=== PATIENT | male | born 1950 | race Hispanic/Latino ===

== ENCOUNTER 2017-11-16 23:50 | Emergency (ER) | payer SELFPAY ==
[2017-11-17 01:17] LABS: Absolute Lymphocytes (CBC) 0.4 K/uL (0.7-4.9); Absolute Monocytes 0.4 K/uL (0.1-1.3); Absolute Neutrophil 12.3 K/uL (1.8-8.0); Basophils % 0.2 % (0-1.3); Hematocrit 42.4 % (39.6-49.0); Lymphocytes % 2.8 % (15.3-44.8); MCH 32.1 pg (27.0-35.0); MCV 93.2 fL (80-100); MPV 8.7 fL (7.6-11.3); Monocytes % 3.1 % (3.3-12.3); RBC Red Blood Cell Count 4.54 M/uL (4.33-5.43)
[2017-11-17 01:29] LABS: Bicarbonate 24 mEq/L (21-31); Glucose Level 172 mg/dL (65-120); Lipase 23 U/L (22-51); Potassium 3.7 mEq/L (3.6-5.0); Sodium Level 138 mEq/L (135-145)
[2017-11-17 01:35] LABS: ALT/SGPT 21 IU/L (10-60); AST/SGOT 31 IU/L (10-42); Albumin 4.1 g/dL (3.2-5.5); Alkaline Phosphatase 78 IU/L (42-121); Amylase Level 83 U/L (28-100); BUN Blood Urea Nitrogen 22 mg/dL (6-20); Bilirubin Direct < 0.1 mg/dL (0-0.2); Bilirubin Total 0.6 mg/dL (0.3-1.2); Protein, Total 7.8 g/dL (6.0-8.3)
[2017-11-17] MEDS ORDERED: NA CHLORIDE 0.9% 1,000 ML ONE (01:44)
[2017-11-17 01:56] LABS: Urine Amorphous Sediment TRACE /HPF (NONE SEEN); Urine Bacteria <20 /HPF (NONE SEEN); Urine Culture Reflex Order NOT NEEDED; Urine Mucus LIGHT /HPF (NONE SEEN); Urine RBC <5 /HPF (NONE SEEN)
[2017-11-17 02:38] LABS: Blood Morphology Comment NOT SEEN (NOT SEEN); Platelet Estimate ADEQ; Urine White Blood Cell Casts OK
[2017-11-17 02:40] LABS: Urine Blood NEGATIVE (NEG); Urine Glucose NEGATIVE (NEG); Urine Protein 1+ (NEG); Urine Specific Gravity 1.015 (1.005-1.030); Urine pH 8.5 (5.0-7.0)
[2017-11-17] MEDS ORDERED: CIPROFLOXACIN HCL 500 MG TAB ONE (04:56)
--- NOTE | 2017-11-17 04:58 | ER ---
Nurse's Notes [facility] Name: Quincy Reece Age: 67 yrs Sex: Male : 1950 Arrival Date: 11/16/2017 Time: 23:55 Bed 7 Private MD: Diagnosis: Rectal pain.. Possible proctitis, malignancy Presentation: 11/17 00:23 Presenting complaint: Patient states: Unable to had an BM and urinate since 1900. ao Patient reports that he urinates after having a BM, but his not been able to have a BM an also urinate. Patient reports pain in the pelvic area in a 10/10 pain scale. Transition of care: patient was not received from another setting of care. Onset of symptoms is unknown. Risk Assessment: Do you want to hurt yourself or someone else? Patient reports no desire to harm self or others. Initial Sepsis Screen: Does the patient meet any 2 criteria? No. Patient's initial sepsis screen is negative. Does the patient have a suspected source of infection? No. Patient's initial sepsis screen is negative. Care prior to arrival: None. 00:23 Method Of Arrival: Ambulatory ao 00:23 Acuity: DARSHANA 3 ao Historical: - Allergies: 00:31 PENICILLINS; ao - Home Meds: 00:31 None [Active]; ao - PMHx: 00:31 prostate enlarge; Colitis; ao - PSHx: 00:31 None; ao - Immunization history:: Adult Immunizations up to date. - Social history:: Smoking status: Patient/guardian denies using tobacco, but has a distant history of tobacco abuse. - Ebola Screening: : Patient negative for fever greater than or equal to 101.5 degrees Fahrenheit, and additional compatible Ebola Virus Disease symptoms Patient denies exposure to infectious person Patient denies travel to an Ebola-affected area in the 21 days before illness onset. Screenin:11 Abuse screen: Denies threats or abuse. Denies injuries from another. Nutritional ao screening: No deficits noted. Tuberculosis screening: No symptoms or risk factors identified. Fall Risk None identified. Assessment: 00:45 General: Appears in no apparent distress. uncomfortable, Behavior is calm, cooperative, ao appropriate for age. Pain: Complains of pain in pelvis. Neuro: Level of Consciousness is awake, alert, obeys commands, Oriented to person, place, time, situation, Appropriate for age Moves all extremities. Speech is normal, Facial symmetry appears normal. Cardiovascular: Capillary refill < 3 seconds Patient's skin is warm and dry. Respiratory: Airway is patent Respiratory effort is even, unlabored, Respiratory pattern is regular, symmetrical. GI: Abdomen is non-distended, Bowel sounds present X 4 quads. Abd is soft and non tender X 4 quads. GI: Reports Unable to have a BM since 1600. : Reports Unable to urinate. EENT: No signs and/or symptoms were reported regarding the EENT system. Derm: Skin is intact, Skin is dry, Skin is pink, warm \T\ dry. Skin temperature is warm. Musculoskeletal: Circulation, motion, and sensation intact. Range of motion: intact in all extremities. 01:35 Reassessment: Patient appears in no apparent distress at this time. Patient and/or ao family updated on plan of care and expected duration. Pain level reassessed. Patient is alert, oriented x 3, equal unlabored respirations, skin warm/dry/pink. 02:40 Reassessment: Patient appears in no apparent distress at this time. Patient and/or ao family updated on plan of care and expected duration. Pain level reassessed. Patient is alert, oriented x 3, equal unlabored respirations, skin warm/dry/pink. 03:48 Reassessment: Patient appears in no apparent distress at this time. Patient and/or ao family updated on plan of care and expected duration. Pain level reassessed. Patient is alert, oriented x 3, equal unlabored respirations, skin warm/dry/pink. Patient back from CT. Waiting for CT report. 05:14 Reassessment: Discharge instructions given to patient and son in [place]. Patient agree ao with the POC and to follow up with Dr Damico. No questions at this time. Vital Signs: 00:29 BP 157 / 87; Pulse 84; Resp 18; Temp 97.4(O); Pulse Ox 99% on R/A; Weight 49.9 kg (R); ao Height 5 ft. 3 in. (160.02 cm) (R); Pain 0/10; 01:35 BP 122 / 80; Pulse 73; Resp 16; Pulse Ox 97% on R/A; ao 02:40 BP 136 / 81; Pulse 65; Resp 16; Pulse Ox 96% on R/A; Pain 0/10; ao 03:48 BP 146 / 89; Pulse 71; Resp 16; Pulse Ox 96% on R/A; ao 05:14 BP 136 / 84; Pulse 72; Resp 16; Temp 97.6(O); Pulse Ox 100% on R/A; Pain 0/10; ao 00:29 Body Mass Index 19.49 (49.90 kg, 160.02 cm) ao ED Course: 11/16 23:55 Patient arrived in ED. al2 11/17 00:19 Mp Hernandez PA is PHCP. cp 00:19 Walter Donnelly MD is Attending Physician. cp 00:23 Armaan Alvarado, CHAN is Primary Nurse. ao 00:29 Triage completed. ao 00:32 Arm band placed on right wrist. Patient placed in an exam room, Patient notified of ao wait time. 01:12 Patient has correct armband on for positive identification. Pulse ox on. NIBP on. ao 03:02 Radiology exam delayed due to Patient was given his oral contrast at 0105 but did not kw1 completely consume it until 0145. Will be scanned at approx. 0315. Patient moved to CT via wheelchair. 03:22 CT completed. Patient tolerated procedure well. Patient moved back from CT. kw1 03:25 CT Abd/Pelvis - W/Contrast: constipation In Process Unspecified. EDMS 04:56 Chi Jameson MD is Referral Physician. pkl 05:13 No provider procedures requiring assistance completed. IV discontinued, intact, ao bleeding controlled, No redness/swelling at site. Pressure dressing applied. Administered Medications: 01:55 Drug: NS 0.9% 500 ml Route: IV; Rate: bolus; Site: right antecubital; ao 03:00 Follow up: IV Status: Completed infusion; IV Intake: 500ml ao 02:31 Drug: NS 0.9% 1000 ml Route: IV; Rate: 100 ml/hr; Site: right antecubital; ao 06:30 Follow up: IV Status: Completed infusion; IV Intake: 100ml ao 04:57 Drug: Cipro 500 mg Route: PO; ao 07:08 Follow up: Response: No adverse reaction ao Point of Care Testing: Guaiac: 02:35 Stool Guaiac: Positive; Stool Hemoccult Control: Pass; ao Intake: 03:00 IV: 500ml; Total: 500ml. ao 06:30 IV: 100ml; Total: 600ml. ao Outcome: 04:57 Discharge ordered by . niall 05:13 Discharged to home ambulatory. ao 05:13 Condition: stable 05:13 Discharge instructions given to patient, Instructed on discharge instructions, follow up and referral plans. Demonstrated understanding of instructions, follow-up care, medications, Prescriptions given X 2. 05:15 Patient left the ED. ao Signatures: Dispatcher [employer] EDMS Walter Donnelly MD MD pkl Page, Corey, PA PA cp Ortiz, Alex, RN RN Siri Saucedo1 Halle Dumont2
--- NOTE | 2017-11-17 04:58 | EDPHYS ---
Physician Documentation [facility] Name: Quincy Reece Age: 67 yrs Sex: Male : 1950 Arrival Date: 11/16/2017 Time: 23:55 Bed 7 Private MD: ED Physician Walter Donnelly HPI: 11/17 00:32 This 67 yrs old Male presents to ER via Ambulatory with complaints of cp Constipation, Abdominal Pain. 00:32 The patient presents with urinary symptoms, retention. Onset: The symptoms/episode cp began/occurred today. 00:32 Associated signs and symptoms: Pertinent positives: abdominal pain, constipation, cp Pertinent negatives: diarrhea, dysuria, fever, hematuria, vomiting. Severity of symptoms: in the emergency department the symptoms are unchanged, despite home interventions. Historical: - Allergies: 00:31 PENICILLINS; ao - Home Meds: 00:31 None [Active]; ao - PMHx: 00:31 prostate enlarge; Colitis; ao - PSHx: 00:31 None; ao - Immunization history:: Adult Immunizations up to date. - Social history:: Smoking status: Patient/guardian denies using tobacco, but has a distant history of tobacco abuse. - Ebola Screening: : Patient negative for fever greater than or equal to 101.5 degrees Fahrenheit, and additional compatible Ebola Virus Disease symptoms Patient denies exposure to infectious person Patient denies travel to an Ebola-affected area in the 21 days before illness onset. ROS: 00:35 Constitutional: Negative for body aches, chills, fever, poor PO intake. cp 00:35 Eyes: Negative for injury, pain, redness, and discharge. cp 00:35 ENT: Negative for drainage from ear(s), ear pain, sore throat, difficulty swallowing, difficulty handling secretions. 00:35 Cardiovascular: Negative for chest pain, edema, palpitations. 00:35 Respiratory: Negative for cough, shortness of breath, wheezing. 00:35 Abdomen/GI: Positive for abdominal pain, constipation, Negative for nausea, vomiting, diarrhea, abdominal distension, black/tarry stool, rectal bleeding. 00:35 : Positive for burning with urination, Negative for flank pain. 00:35 Skin: Negative for cellulitis, rash. 00:35 Neuro: Negative for altered mental status, headache, syncope, near syncope. 00:35 All other systems are negative. Exam: 02:31 Head/Face: Normocephalic, atraumatic. Eyes: Pupils equal round and reactive to light, cp extra-ocular motions intact. Lids and lashes normal. Conjunctiva and sclera are non-icteric and not injected. Cornea within normal limits. Periorbital areas with no swelling, redness, or edema. ENT: Nares patent. No nasal discharge, no septal abnormalities noted. Tympanic membranes are normal and external auditory canals are clear. Oropharynx with no redness, swelling, or masses, exudates, or evidence of obstruction, uvula midline. Mucous membranes moist. Neck: Trachea midline, no thyromegaly or masses palpated, and no cervical lymphadenopathy. Supple, full range of motion without nuchal rigidity, or vertebral point tenderness. No Meningismus. Chest/axilla: Normal chest wall appearance and motion. Nontender with no deformity. No lesions are appreciated. 02:31 Constitutional: The patient appears in no acute distress, alert, awake, non-diaphoretic, non-toxic, well developed, well nourished. 02:31 Cardiovascular: Rate: normal, Rhythm: regular, Edema: is not appreciated, JVD: is not appreciated. 02:31 Respiratory: the patient does not display signs of respiratory distress, Respirations: normal, no use of accessory muscles, no retractions, no splinting, no tachypnea, labored breathing, is not present, Breath sounds: are clear throughout, no decreased breath sounds, no stridor, no wheezing. 02:31 Abdomen/GI: Inspection: abdomen appears normal, Bowel sounds: active, all quadrants, Palpation: soft, in all quadrants, moderate abdominal tenderness, in the suprapubic area, rebound tenderness, is not appreciated, voluntary guarding, is elicited in the suprapubic area, Rectal exam: Prostate: enlarged, rectal tone normal, Stool: brown, guaiac positive, maroon. 02:31 Back: pain, is absent, ROM is normal. 02:31 Skin: cellulitis, is not appreciated, no rash present. 02:31 Neuro: Orientation: to person, place \T\ time. Mentation: lucid, able to follow commands, Motor: moves all fours, strength is normal, Sensation: is normal, Gait: is steady. Vital Signs: 00:29 BP 157 / 87; Pulse 84; Resp 18; Temp 97.4(O); Pulse Ox 99% on R/A; Weight 49.9 kg (R); ao Height 5 ft. 3 in. (160.02 cm) (R); Pain 0/10; 01:35 BP 122 / 80; Pulse 73; Resp 16; Pulse Ox 97% on R/A; ao 02:40 BP 136 / 81; Pulse 65; Resp 16; Pulse Ox 96% on R/A; Pain 0/10; ao 03:48 BP 146 / 89; Pulse 71; Resp 16; Pulse Ox 96% on R/A; ao 05:14 BP 136 / 84; Pulse 72; Resp 16; Temp 97.6(O); Pulse Ox 100% on R/A; Pain 0/10; ao 00:29 Body Mass Index 19.49 (49.90 kg, 160.02 cm) ao MDM: 00:19 Patient medically screened. cp 02:34 Differential diagnosis: nonspecific abdominal pain, UTI, urinary retention, cp prostatitis, urethritis, colitis, diverticulitis. Data reviewed: vital signs, nurses notes, lab test result(s). Transition of care: After a detail discussion of the patient's case, care is transferred to Walter Donnelly MD. 11/17 00:33 Order name: Amylase, Serum; Complete Time: 02:36 cp 11/17 00:33 Order name: Basic Metabolic Panel; Complete Time: 02:36 cp 11/17 00:33 Order name: CBC with Diff; Complete Time: 03:21 cp 11/17 01:29 Interpretation: Normal except: WBC 13.1; DEONNA% 93.9; LYM% 2.8; MN% 3.1; NEUT A 12.3; cp LYMA 0.4. 11/17 00:33 Order name: Creatinine for Radiology; Complete Time: 01:29 cp 11/17 00:33 Order name: Hepatic Function; Complete Time: 02:36 cp 11/17 00:33 Order name: Lipase; Complete Time: 02:36 cp 11/17 00:33 Order name: Bladder Scanner: pre and post void; Complete Time: 00:57 cp 11/17 00:33 Order name: Urine Microscopic Only; Complete Time: 02:36 cp 11/17 01:01 Order name: CT Abd/Pelvis - W/Contrast: constipation cp 11/17 01:45 Order name: Urine Dipstick--Ancillary (enter results); Complete Time: 03:21 eb 11/17 02:38 Order name: CBC Smear Scan; Complete Time: 03:21 EDNE 11/17 00:33 Order name: IV Saline Lock; Complete Time: 01:08 cp 11/17 00:33 Order name: Labs collected and sent; Complete Time: 01:08 cp 11/17 00:33 Order name: Urine Dipstick-Ancillary (obtain specimen); Complete Time: 02:01 cp Administered Medications: 01:55 Drug: NS 0.9% 500 ml Route: IV; Rate: bolus; Site: right antecubital; ao 03:00 Follow up: IV Status: Completed infusion; IV Intake: 500ml ao 02:31 Drug: NS 0.9% 1000 ml Route: IV; Rate: 100 ml/hr; Site: right antecubital; ao 06:30 Follow up: IV Status: Completed infusion; IV Intake: 100ml ao 04:57 Drug: Cipro 500 mg Route: PO; ao 07:08 Follow up: Response: No adverse reaction ao Point of Care Testing: Guaiac: 02:35 Stool Guaiac: Positive; Stool Hemoccult Control: Pass; ao Disposition: 04:55 Co-signature as Attending Physician, Walter Donnelly MD. pkl Disposition: 11/17/17 04:57 Discharged to Home. Impression: Rectal pain.. Possible proctitis, malignancy. - Condition is Stable. - Prescriptions for Ultram 50 mg Oral Tablet - take 1 tablet by ORAL route every 8 hours As needed; 15 tablet. Cipro 500 mg Oral Tablet - take 1 tablet by ORAL route every 12 hours for 7 days; 14 tablet. - Medication Reconciliation Form, Thank You Letter, Antibiotic Education, Prescription Opioid Use, Work release form, Family Work Release form. - Follow up: Chi Jameson MD; When: 2 - 3 days; Reason: Re-evaluation by your physician. - Problem is new. - Symptoms have improved. Signatures: Dispatcher [employer] Walter Beltran MD MD pkMp Alcaraz PA PA cp Ortiz, Alex RN RN ao Corrections: (The following items were deleted from the chart) 01:29 01:29 Normal except: WBC 13.1; DEONNA% 93.9; LYM% 2.8; MN% 3.1; NEUT A 12.3. cp cp 05:15 04:57 11/17/2017 04:57 Discharged to Home. Impression: Rectal pain.. Possible ao proctitis, malignancy. Condition is Stable. Forms are Medication Reconciliation Form, Thank You Letter, Antibiotic Education, Prescription Opioid Use. Follow up: Chi Jameson; When: 2 - 3 days; Reason: Re-evaluation by your physician. Problem is new. Symptoms have improved. pkl
[2017-11-17 05:39] VITALS: BP 136/84; TEMP 97.6; O2SAT 100
--- NOTE | 2017-11-17 09:03 | RAD REPORT ---
EXAM DESCRIPTION: CT - Abdomen Pelvis W Contrast - 11/17/2017 6:58 am CLINICAL HISTORY: Abdominal pain, constipation, dysuria or inability to urinate, patient reported pe lvic pain rated 10/10, history of prostatic enlargement and colitis A preliminary written report was provided at the time of the study, and the report was reviewed prio r to final dictation. COMPARISON: None. TECHNIQUE: Biphasic, helical CT imaging of the abdomen and pelvis was performed following 100 ml non -ionic IV contrast. Oral contrast was given. All CT scans are performed using dose optimization technique as appropriate and may include automated exposure control or mA/KV adjustment according to patient size. FINDINGS: Nodular stranding in the anterior bilateral lung base is probably scarring. Acute infiltra te is doubtful. No pericardial thickening or effusion. No pneumothorax or pleural effusion. The liver, spleen, and pancreas show no suspicious findings. Gallbladder and biliary tree are also wi thout suspicious finding. Symmetric renal function is seen with no hydronephrosis or suspicious renal mass. Bilateral renal cys ts are present. No pyelonephritis or acute renal parenchymal process. No urinary bladder abnormality. Prostate gland and seminal vesicles are not outside of normal range. No gastric dilatation or gastric wall thickening. Food and contrast filled but do not abnormally dist end the stomach. Oral CT contrast has reached the distal small bowel. No bowel obstruction. There is a prominent amount of liquid stool filling the colon from cecum through descending colon. Solid stool is present in the rectum and sigmoid portions of the colon. In the distal rectum near the anus and i n the sigmoid colon there are areas of wall thickening present. No gross evidence for a malignant mas s. Trace amount of stranding is seen adjacent to the distal rectum. No free air, free fluid or pneuma tosis. No hernia, mass or bulky lymphadenopathy. No adrenal abnormality. No suspicious bony findings. IMPRESSION: No bowel obstruction, free air or surgically emergent finding. Wall thickening and stranding distal rectum suspected to be a proctitis. Two areas of wall thickening in the sigmoid colon are present near a transition between rectosigmoid solid stool and more proximal liquid stool in the colon. The sigmoid colitis is possible. Rectosigmoi d malignant mass unlikely but not entirely excluded. Follow-up colonoscopy may be helpful. No acute stomach or small bowel finding. No acute finding of the solid abdominal viscera.
== END 2017-11-17 05:15 | disposition home or self-care (01) ==
LOC: ER 23:50
DX: K62.89 Other specified diseases of anus and rectum (principal); K59.00 Constipation, unspecified; Z88.0 Allergy status to penicillin
CPT/HCPCS: 36415; 74177; 80048; 80076; 81003; 81015; 82150; 83690; 85025; 96360; 96361; 99284; J7030; Q9967